=== PATIENT | male | born 1950 | race Caucasian/White ===

== ENCOUNTER → 2021-12-07 14:56 | Outpatient (ROUT) | payer MEDICARE, SELFPAY ==
[2021-12-07 15:16] LABS: COVID19 -Nasal RAPID Negative (Negative)
== END ==
PROVIDERS: Visit Provider Physician Assistant
DX: Z20.822 Contact with and (suspected) exposure to COVID-19 (principal)
CPT/HCPCS: 87635

== ENCOUNTER → 2022-02-24 13:54 | Outpatient (CLI) | payer MEDICARE, OTHER, SELFPAY ==
[2022-02-24 15:13] LABS: COVID19 -Nasal RAPID Negative (Negative)
--- NOTE | 2022-02-24 19:41 | DI.NM.S_ITS ---
DATE OF SERVICE: 02/24/2022 PROCEDURE PERFORMED: Exercise stress test. INDICATION: Preop evaluation, underlying left anterior fascicular block. CARDIAC STRESS: The patient underwent exercise stress test under the supervision of an attending staff. He walked on Max protocol for 9 minutes and 01 seconds, achieved maximum heart rate of 160, which was 108 percent of target heart rate. Resting blood pressure 122/80 mmHg. Peak blood pressure 162/90 mmHg. MADINA -33 percent and achieved 10.1 METs of workload. Baseline rhythm was sinus. The left anterior fascicular block. During stress, there were no convincing is inducible ischemic changes. In recovery, the patient has occasional PVCs and ventricular couplets without any ventricular tachycardia. No chest discomfort. Had some shortness of breath. CONCLUSION: Exercise stress test is negative for conclusive inducible ischemia. Excellent exercise tolerance. Functional aerobic impairment -33 percent. Achieved 10.1 metabolic equivalents of workload. Baseline rhythm sinus with left anterior fascicular block. In recovery, patient has some isolated premature ventricular contractions and ventricular couplets without any ventricular tachycardia. No anginal symptoms. Overall low-risk exercise stress test. Casey Wood - JOANNE/alhaji/keven doc#: [id number]/job#: [id number] dd: 02/24/2022 16:52:00 dt: 02/24/2022 19:29:00 DICTATING /COPIES TO: Sanjeev Chandler MD COPIES MNE: DERIK;
== END ==
PROVIDERS: PCP Student in an Organized Health Care Education/Training Program; Referring Provider Student in an Organized Health Care Education/Training Program; Visit Provider Student in an Organized Health Care Education/Training Program
DX: I25.2 Old myocardial infarction (principal); Z01.818 Encounter for other preprocedural examination; I44.4 Left anterior fascicular block; Z20.822 Contact with and (suspected) exposure to COVID-19
CPT/HCPCS: 87635; 93017

== ENCOUNTER 2022-06-02 10:30 | Outpatient (RCR) | payer MEDICARE, OTHER, SELFPAY ==
--- NOTE | 2022-02-25 22:27 | PT.OIE ---
Current Diagnoses Dizziness and giddiness (02/25/22) Visit Care Team Role Provider Type Jose F Gavin MD Primary Care Provider Physician Specialty: Family Practice Address: [address], [facility], [place], [address] Email: [email or web address] Simone Reeves MD Attending Provider Non-Staff Referring Provider Specialty: Neurology Address: [address] [place], [address] Email: Physical Therapy Initial Evaluation PT-OP-A Visit Information Start: 02/25/22 12:59 Freq: Status: Active Protocol: Document 02/25/22 13:01 AMB (Rec: 02/25/22 13:21 AMB [id number]) Out-Patient Physical Therapy Visit Information Visit Information Visit Type Initial Evaluation Visit Start Time 13:00 Visit Stop Time 13:45 Total Visit Minutes 45 Visit Number 1 PT-OP-B Current Condition Start: 02/25/22 12:59 Freq: Status: Active Protocol: Document 02/25/22 13:01 AMB (Rec: 02/25/22 13:21 AMB [id number]) Current Condition History of Current Condition Onset Date 3 years ago Current Complaints vestibular migraine History of Current Condition Pt feels Swimmy walking around and hits the doorjam, walking and looking is challenging all the time all of that started 3 years ago and is all the time. 2 ocular migraines-- (started in 1994) in the last 2 weeks, so migraines really started first , then balance issues started signficantly later. Has had prior physical therapy. Eye surgeries: cataracts, lasik. 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 Treatment Goals Patient/Caregiver Goals Reduced dizziness/ feeling off balance/ swimmy Prior Functional Status Baseline Function- ADL's Independent Baseline Function- Mobility Independent PT-OP-C Subjective Start: 02/25/22 12:59 Freq: Status: Active Protocol: Document 02/25/22 13:00 AMB (Rec: 02/26/22 15:49 AMB [id number]) Patient Questionnaires Dizziness Handicap Inventory DHI Score 18 DHI Functional Impairment 1 to 19% Impaired (Score 1-19) PT-OP-O Vestibular Start: 02/25/22 12:59 Freq: Status: Active Protocol: Document 02/25/22 13:00 AMB (Rec: 02/26/22 15:49 AMB [id number]) Vestibular Assessment Visual Testing Smooth Pursuits Horizontal WFL Smooth Pursuits Vertical WFL Saccades Horizontal WFL Saccades Vertical WFL Thrust Head Positive Left DVA (Line Degradation) 1 Vestibular Function Tests Fukuda Test 45 degree turn L mCTSIB Position 1 30 mCTSIB Position 2 30 mCTSIB Position 3 ankle sway mCTSIB Position 4 ankle sway Comments Vestibular Comments DGI: 21/24 significant veering with horizontal head turns, uses railing on stairs PT-OP-Q Treatments Start: 02/25/22 12:59 Freq: Status: Active Protocol: Document 02/25/22 13:00 AMB (Rec: 02/26/22 15:52 AMB [id number]) Neuro Re-Education Treatment Balance Activities 1 Details NBOS/modified tandem Comments HT PT-OP-T Assessment and Plan Start: 02/25/22 12:59 Freq: Status: Active Protocol: Document 02/26/22 22:16 AMB (Rec: 02/26/22 22:27 AMB [id number]) Physical Therapy Assessment Rehab Potential Rehabilitation Potential Good Evaluation Complexity Number of Personal Factors/Comorbidities 0 Number of Body Systems Impaired 1-2 Clinical Presentation at Evaluation Stable Impairments Impairments Balance,Vestibular Goals Three Impairment Gait Senior Care Goal (LTG) 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 LTG Duration 10 weeks Two Impairment HEP Short Term Goal (STG) Casey will be independent and consistent with a HEP for his dizziness. STG Duration 4 weeks One Impairment DGI Short Term Goal (STG) Casey will improve his DGI to 23/24. STG Duration 4 weeks Assessment Summary Assessment Casey attends physical therapy with a long history of migraine and a more recent history of a feeling of being off balance that is fairly consistent. Worst with horizontal head turns. He did have a positive head thrust test, but his DVA was actually quite good at only one line lost with head turns. DGI was most impacted with walking with head turns which did cause significant veering. 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 Casey will benefit from physical therapy to improve his overall balance and vestibular function. Physical Therapy Plan Frequency and Duration Frequency of Treatment 1x/Week Duration of Treatment 10 weeks Plan of Care Start Date 02/25/22 Plan of Care End Date 05/06/22 Therapeutic Interventions Therapeutic Interventions Balance Training,Neuromuscular Re-education,Self-Care/Home Management,Therapeutic Activities,Therapeutic Exercises,Vestibular Rehabilitation Next Visit Focus/Plan Next Note Type Treatment Note Next Visit Plan Progress HEP, focus on horizontal head turns
--- NOTE | 2022-02-25 22:29 | PT.OPPOC ---
Physical, Occupational & Speech Therapy At Current Diagnoses Dizziness and giddiness (02/25/22) Visit Care Team Role Provider Type Jose F Gavin MD Primary Care Provider Physician Specialty: Family Practice Address: [address] [place] [address], [facility] [place], [address] Email: [email or web address] Simone Reeves MD Attending Provider Non-Staff Referring Provider Specialty: Neurology Address: [address] [place], [address] Email: Plan Of Care PT-OP-T Assessment and Plan Start: 02/25/22 12:59 Freq: Status: Active Protocol: Document 02/26/22 22:16 AMB (Rec: 02/26/22 22:27 AMB [id number]) Physical Therapy Assessment Rehab Potential Rehabilitation Potential Good Evaluation Complexity Number of Personal Factors/Comorbidities 0 Number of Body Systems Impaired 1-2 Clinical Presentation at Evaluation Stable Impairments Impairments Balance,Vestibular Goals Three Impairment Gait Veterans Rehabilitation Counselor Goal (LTG) 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 LTG Duration 10 weeks Two Impairment HEP Short Term Goal (STG) Casey will be independent and consistent with a HEP for his dizziness. STG Duration 4 weeks One Impairment DGI Short Term Goal (STG) Casey will improve his DGI to 23/24. STG Duration 4 weeks Assessment Summary Assessment Casey attends physical therapy with a long history of migraine and a more recent history of a feeling of being off balance that is fairly consistent. Worst with horizontal head turns. He did have a positivite head thrust test, but his DVA was actually quite good at onely one line lost with head turns. DGI was most impacted with walking with head turns which did cause significant veering. 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 Casey will benefit from physical therapy to improve his overall balance and vestibular function. Physical Therapy Plan Frequency and Duration Frequency of Treatment 1x/Week Duration of Treatment 10 weeks Plan of Care Start Date 02/25/22 Plan of Care End Date 11/10/22 Therapeutic Interventions Therapeutic Interventions Balance Training,Neuromuscular Re-education,Self-Care/Home Management,Therapeutic Activities,Therapeutic Exercises,Vestibular Rehabilitation Next Visit Focus/Plan Next Note Type Treatment Note Next Visit Plan Progress HEP, focus on horizontal head turns Plan of Care Dates Plan of Care Start Date 02/25/22 Plan of Care End Date 05/06/22 Electronically Signed by: Namrata Vásquez, PT 02/26/22 [id number] If you are in agreement with this Plan of Care, please return a signed and dated copy. I have reviewed this Plan of Care and certify that the skilled therapy services above are required to meet the patient?s needs. Physician Signature Date Printed Name and Credentials Clinical Instructor Signature Printed Name and Credentials
--- NOTE | 2022-03-05 11:55 | PT.OTN ---
Current Diagnoses Dizziness and giddiness (03/04/22) Physical Therapy Treatment Note PT-OP-A Visit Information Start: 02/25/22 12:59 Freq: Status: Active Protocol: Document 03/04/22 13:28 AMB (Rec: 03/04/22 13:47 AMB [id number]) Out-Patient Physical Therapy Visit Information Visit Information Visit Type Treatment Note Visit Start Time 13:00 Visit Stop Time 13:45 Total Visit Minutes 45 Visit Number 2 PT-OP-B Current Condition Start: 02/25/22 12:59 Freq: Status: Active Protocol: Document 02/25/22 13:01 AMB (Rec: 02/25/22 13:21 AMB [id number]) Current Condition History of Current Condition Onset Date 3 years ago Current Complaints vestibular migraine History of Current Condition Pt feels Swimmy walking around and hits the doorjam, walking and looking is challenging all the time all of that started 3 years ago and is all the time. 2 ocular migraines-- (started in 1994) in the last 2 weeks, so migraines really started first , then balance issues started signficantly later. Has had prior physical therapy. Eye surgeries: cataracts, lasik. 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 Treatment Goals Patient/Caregiver Goals Reduced dizziness/ feeling off balance/ swimmy Prior Functional Status Baseline Function- ADL's Independent Baseline Function- Mobility Independent PT-OP-C Subjective Start: 02/25/22 12:59 Freq: Status: Active Protocol: Document 03/04/22 13:28 AMB (Rec: 03/04/22 13:47 AMB [id number]) OP-PT Subjective Patient Comments Patient Reported Progress Same PT-OP-O Vestibular Start: 02/25/22 12:59 Freq: Status: Active Protocol: Document 02/25/22 13:00 AMB (Rec: 02/26/22 15:49 AMB [id number]) Vestibular Assessment Visual Testing Smooth Pursuits Horizontal WFL Smooth Pursuits Vertical WFL Saccades Horizontal WFL Saccades Vertical WFL Thrust Head Positive Left DVA (Line Degradation) 1 Vestibular Function Tests Fukuda Test 45 degree turn L mCTSIB Position 1 30 mCTSIB Position 2 30 mCTSIB Position 3 ankle sway mCTSIB Position 4 ankle sway Comments Vestibular Comments DGI: significant veering with horizontal head turns, uses railing on stairs PT-OP-Q Treatments Start: 02/25/22 12:59 Freq: Status: Active Protocol: Document 03/04/22 11:42 AMB (Rec: 03/05/22 11:54 AMB [id number]) Neuro Re-Education Treatment Balance Activities foam Comments EO HT--good 1 Details NBOS/modified tandem Comments HT Other Activities 3 step and HT Reps/Duration 10 3 step and bow Reps/Duration 10 walking with head turns Details horizontal Comments mild veering, reaching out for wall ~5x PT-OP-T Assessment and Plan Start: 02/25/22 12:59 Freq: Status: Active Protocol: Document 03/04/22 11:42 AMB (Rec: 03/05/22 11:54 AMB [id number]) Physical Therapy Assessment Goals Three Impairment Gait Skilled Nursing Goal (LTG) 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 LTG Duration 10 weeks Two Impairment HEP Short Term Goal (STG) Casey will be independent and consistent with a HEP for his dizziness. STG Duration 4 weeks One Impairment DGI Short Term Goal (STG) Casey will improve his DGI to 23/24. STG Duration 4 weeks Assessment Summary Assessment Casey was challenged by 3- step and bow activities. [place] and HT resulted in multiple LOB (pt able to independently recover). Given 3 step and bow and 3 step and HT as HEP.
--- NOTE | 2022-04-07 12:42 | PT.OTN ---
Current Diagnoses Dizziness and giddiness (04/07/22) Physical Therapy Treatment Note PT-OP-A Visit Information Start: 02/25/22 12:59 Freq: Status: Active Protocol: Document 04/07/22 10:33 AMB (Rec: 04/07/22 10:56 AMB [id number]) Out-Patient Physical Therapy Visit Information Visit Information Visit Type Treatment Note Visit Start Time 10:30 Visit Stop Time 11:00 Total Visit Minutes 30 Visit Number 3 PT-OP-B Current Condition Start: 02/25/22 12:59 Freq: Status: Active Protocol: Document 02/25/22 13:01 AMB (Rec: 02/25/22 13:21 AMB [id number]) Current Condition History of Current Condition Onset Date 3 years ago Current Complaints vestibular migraine History of Current Condition Pt feels Swimmy walking around and hits the doorjam, walking and looking is challenging all the time all of that started 3 years ago and is all the time. 2 ocular migraines-- (started in 1994) in the last 2 weeks, so migraines really started first , then balance issues started signficantly later. Has had prior physical therapy. Eye surgeries: cataracts, lasik. 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 Treatment Goals Patient/Caregiver Goals Reduced dizziness/ feeling off balance/ swimmy Prior Functional Status Baseline Function- ADL's Independent Baseline Function- Mobility Independent PT-OP-C Subjective Start: 02/25/22 12:59 Freq: Status: Active Protocol: Document 04/07/22 10:33 AMB (Rec: 04/07/22 10:56 AMB [id number]) OP-PT Subjective Patient Comments Patient Comments In the mornings feels the most swimmy. Hours later until the swimmy subsides. PT-OP-O Vestibular Start: 02/25/22 12:59 Freq: Status: Active Protocol: Document 02/25/22 13:00 AMB (Rec: 02/26/22 15:49 AMB [id number]) Vestibular Assessment Visual Testing Smooth Pursuits Horizontal WFL Smooth Pursuits Vertical WFL Saccades Horizontal WFL Saccades Vertical WFL Thrust Head Positive Left DVA (Line Degradation) 1 Vestibular Function Tests Fukuda Test 45 degree turn L mCTSIB Position 1 30 mCTSIB Position 2 30 mCTSIB Position 3 ankle sway mCTSIB Position 4 ankle sway Comments Vestibular Comments DGI: significant veering with horizontal head turns, uses railing on stairs PT-OP-Q Treatments Start: 02/25/22 12:59 Freq: Status: Active Protocol: Document 04/07/22 10:33 AMB (Rec: 04/07/22 10:56 AMB [id number]) Neuro Re-Education Treatment Balance Activities foam Comments EO HT--good 1 Details NBOS/modified tandem Comments HT Other Activities 3 step and HT Reps/Duration 10 3 step and bow Reps/Duration 10 walking with head turns Details horizontal/ added vertical Comments mild veering, reaching out for wall ~5x PT-OP-T Assessment and Plan Start: 02/25/22 12:59 Freq: Status: Active Protocol: Document 04/07/22 10:33 AMB (Rec: 04/07/22 10:56 AMB [id number]) Physical Therapy Assessment Assessment Summary Assessment Pt chalenged by vertical head turns today, more so with gait than static balance. Physical Therapy Plan Next Visit Focus/Plan Next Note Type Treatment Note Next Visit Plan Progress HEP, focus on horizontal head turns
--- NOTE | 2022-04-19 14:30 | PT.OTN ---
Current Diagnoses Dizziness and giddiness (04/19/22) Physical Therapy Treatment Note PT-OP-A Visit Information Start: 02/25/22 12:59 Freq: Status: Active Protocol: Document 04/19/22 12:59 AMB (Rec: 04/19/22 13:45 AMB [id number]) Out-Patient Physical Therapy Visit Information Visit Information Visit Type Treatment Note Visit Start Time 13:00 Visit Stop Time 13:45 Total Visit Minutes 45 Visit Number 4 PT-OP-B Current Condition Start: 02/25/22 12:59 Freq: Status: Active Protocol: Document 02/25/22 13:01 AMB (Rec: 02/25/22 13:21 AMB [id number]) Current Condition History of Current Condition Onset Date 3 years ago Current Complaints vestibular migraine History of Current Condition Pt feels Swimmy walking around and hits the doorjam, walking and looking is challenging all the time all of that started 3 years ago and is all the time. 2 ocular migraines-- (started in 1994) in the last 2 weeks, so migraines really started first , then balance issues started signficantly later. Has had prior physical therapy. Eye surgeries: cataracts, lasik. 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 Treatment Goals Patient/Caregiver Goals Reduced dizziness/ feeling off balance/ swimmy Prior Functional Status Baseline Function- ADL's Independent Baseline Function- Mobility Independent PT-OP-C Subjective Start: 02/25/22 12:59 Freq: Status: Active Protocol: Document 04/19/22 12:59 AMB (Rec: 04/19/22 13:45 AMB [id number]) OP-PT Subjective Patient Comments Patient Comments Feeling extra floating lately. Goes out in the kayak with the camera and that can be challenging. PT-OP-O Vestibular Start: 02/25/22 12:59 Freq: Status: Active Protocol: Document 02/25/22 13:00 AMB (Rec: 02/26/22 15:49 AMB [id number]) Vestibular Assessment Visual Testing Smooth Pursuits Horizontal WFL Smooth Pursuits Vertical WFL Saccades Horizontal WFL Saccades Vertical WFL Thrust Head Positive Left DVA (Line Degradation) 1 Vestibular Function Tests Fukuda Test 45 degree turn L mCTSIB Position 1 30 mCTSIB Position 2 30 mCTSIB Position 3 ankle sway mCTSIB Position 4 ankle sway Comments Vestibular Comments DGI: 21/24 significant veering with horizontal head turns, uses railing on stairs PT-OP-Q Treatments Start: 02/25/22 12:59 Freq: Status: Active Protocol: Document 04/19/22 13:00 AMB (Rec: 04/20/22 13:30 AMB [id number]) Neuro Re-Education Treatment Balance Activities foam Comments EO HT--good Vestibular Rehabilitation Corrective Saccades Speed medium Reps/Duration 30x2 Other Activities 3 step and HT Reps/Duration 10 3 step and bow Reps/Duration 10 walking with head turns Details horizontal/ added vertical PT-OP-T Assessment and Plan Start: 02/25/22 12:59 Freq: Status: Active Protocol: Document 04/19/22 12:59 AMB (Rec: 04/19/22 13:45 AMB [id number]) Physical Therapy Assessment Goals Three Impairment Gait Statement Services Representative Goal (LTG) 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 LTG Duration 10 weeks Two Impairment HEP Short Term Goal (STG) Casey will be independent and consistent with a HEP for his dizziness. STG Duration 4 weeks One Impairment DGI Short Term Goal (STG) Casey will improve his DGI to 23/24. STG Duration 4 weeks Assessment Summary Assessment Pt is noticing continued floaty feelings. Discussed things that can promote migraines, pt does think doing photography from the kayak is a very visually challenging activity, as long as issues wiht his reader glasses might be causing more eye strain. Asked pt to schedule a few more appointments although his travel schedule and therapy schedule may make this challenging. Physical Therapy Plan Frequency and Duration Frequency of Treatment 1x/Week Duration of treatment (weeks) 10 Plan of Care Start Date 02/25/22 Plan of Care End Date 05/06/22 Therapeutic Interventions Therapeutic Interventions Balance Training,Neuromuscular Re-education,Self-Care/Home Management,Therapeutic Activities,Therapeutic Exercises,Vestibular Rehabilitation Next Visit Focus/Plan Next Note Type Treatment Note
--- NOTE | 2022-05-05 21:50 | PT.OTN ---
Current Diagnoses Dizziness and giddiness (05/05/22) Physical Therapy Treatment Note PT-OP-A Visit Information Start: 02/25/22 12:59 Freq: Status: Active Protocol: Document 05/05/22 10:30 AMB (Rec: 05/05/22 11:05 AMB [id number]) Out-Patient Physical Therapy Visit Information Visit Information Visit Type Treatment Note Visit Start Time 10:30 Visit Stop Time 11:15 Total Visit Minutes 45 Visit Number 5 PT-OP-B Current Condition Start: 02/25/22 12:59 Freq: Status: Active Protocol: Document 02/25/22 13:01 AMB (Rec: 02/25/22 13:21 AMB [id number]) Current Condition History of Current Condition Onset Date 3 years ago Current Complaints vestibular migraine History of Current Condition Pt feels Swimmy walking around and hits the doorjam, walking and looking is challenging all the time all of that started 3 years ago and is all the time. 2 ocular migraines-- (started in 1994) in the last 2 weeks, so migraines really started first , then balance issues started signficantly later. Has had prior physical therapy. Eye surgeries: cataracts, lasik. 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 Treatment Goals Patient/Caregiver Goals Reduced dizziness/ feeling off balance/ swimmy Prior Functional Status Baseline Function- ADL's Independent Baseline Function- Mobility Independent PT-OP-C Subjective Start: 02/25/22 12:59 Freq: Status: Active Protocol: Document 04/19/22 12:59 AMB (Rec: 04/19/22 13:45 AMB [id number]) OP-PT Subjective Patient Comments Patient Comments Feeling extra floating lately. Goes out in the kayak with the camera and that can be challenging. PT-OP-O Vestibular Start: 02/25/22 12:59 Freq: Status: Active Protocol: Document 02/25/22 13:00 AMB (Rec: 02/26/22 15:49 AMB [id number]) Vestibular Assessment Visual Testing Smooth Pursuits Horizontal WFL Smooth Pursuits Vertical WFL Saccades Horizontal WFL Saccades Vertical WFL Thrust Head Positive Left DVA (Line Degradation) 1 Vestibular Function Tests Fukuda Test 45 degree turn L mCTSIB Position 1 30 mCTSIB Position 2 30 mCTSIB Position 3 ankle sway mCTSIB Position 4 ankle sway Comments Vestibular Comments DGI: 21/24 significant veering with horizontal head turns, uses railing on stairs PT-OP-Q Treatments Start: 02/25/22 12:59 Freq: Status: Active Protocol: Document 05/05/22 10:30 AMB (Rec: 05/06/22 21:49 AMB [id number]) Neuro Re-Education Treatment Other Activities 3 step and HT Reps/Duration 10 3 step and bow Reps/Duration 10 walking with head turns Details horizontal/ added vertical PT-OP-T Assessment and Plan Start: 02/25/22 12:59 Freq: Status: Active Protocol: Document 05/05/22 10:30 AMB (Rec: 05/06/22 21:48 AMB [id number]) Physical Therapy Assessment Goals Three Impairment Gait Service Desk Associate Goal (LTG) 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 LTG Duration 10 weeks Two Impairment HEP Short Term Goal (STG) Casey will be independent and consistent with a HEP for his dizziness. STG Duration 4 weeks One Impairment DGI Short Term Goal (STG) Casey will improve his DGI to 23/24. STG Duration MET Assessment Summary Assessment Casey has improve his DGI. He didnot show any outward signs of veering/imbalance, but did feel off and swimmy with horizontal and vertical head turns. Overall he feels his symptoms have improved siglightly with physical therapy but not significantly. He has had a hard time being consistent with his HEP due to his travel. Physical Therapy Plan Frequency and Duration Frequency of Treatment 1x/Week Duration of treatment (weeks) 10 Plan of Care Start Date 02/25/22 Plan of Care End Date 05/06/22 Therapeutic Interventions Therapeutic Interventions Balance Training,Neuromuscular Re-education,Self-Care/Home Management,Therapeutic Activities,Therapeutic Exercises,Vestibular Rehabilitation Next Visit Focus/Plan Next Note Type Treatment Note
--- NOTE | 2022-06-02 20:53 | PT.OTN ---
Current Diagnoses Dizziness and giddiness (06/02/22) Physical Therapy Treatment Note PT-OP-A Visit Information Start: 02/25/22 12:59 Freq: Status: Active Protocol: Document 06/02/22 10:32 AMB (Rec: 06/02/22 11:17 AMB [id number]) Out-Patient Physical Therapy Visit Information Visit Information Visit Type Treatment Note Visit Start Time 10:30 Visit Stop Time 11:15 Total Visit Minutes 45 Visit Number 6 PT-OP-B Current Condition Start: 02/25/22 12:59 Freq: Status: Active Protocol: Document 02/25/22 13:01 AMB (Rec: 02/25/22 13:21 AMB [id number]) Current Condition History of Current Condition Onset Date 3 years ago Current Complaints vestibular migraine History of Current Condition Pt feels Swimmy walking around and hits the doorjam, walking and looking is challenging all the time all of that started 3 years ago and is all the time. 2 ocular migraines-- (started in 1994) in the last 2 weeks, so migraines really started first , then balance issues started signficantly later. Has had prior physical therapy. Eye surgeries: cataracts, lasik. 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 Treatment Goals Patient/Caregiver Goals Reduced dizziness/ feeling off balance/ swimmy Prior Functional Status Baseline Function- ADL's Independent Baseline Function- Mobility Independent PT-OP-C Subjective Start: 02/25/22 12:59 Freq: Status: Active Protocol: Document 06/02/22 10:30 AMB (Rec: 06/05/22 20:47 AMB [id number]) OP-PT Subjective Patient Comments Patient Comments Pt states he feels minimally better, does think exercises are helping but continues to have symptoms. PT-OP-O Vestibular Start: 02/25/22 12:59 Freq: Status: Active Protocol: Document 02/25/22 13:00 AMB (Rec: 02/26/22 15:49 AMB [id number]) Vestibular Assessment Visual Testing Smooth Pursuits Horizontal WFL Smooth Pursuits Vertical WFL Saccades Horizontal WFL Saccades Vertical WFL Thrust Head Positive Left DVA (Line Degradation) 1 Vestibular Function Tests Fukuda Test 45 degree turn L mCTSIB Position 1 30 mCTSIB Position 2 30 mCTSIB Position 3 ankle sway mCTSIB Position 4 ankle sway Comments Vestibular Comments DGI: 21/24 significant veering with horizontal head turns, uses railing on stairs PT-OP-Q Treatments Start: 02/25/22 12:59 Freq: Status: Active Protocol: Document 06/02/22 10:30 AMB (Rec: 06/03/22 13:16 AMB [id number]) Neuro Re-Education Treatment Vestibular Rehabilitation VOR Retraining Details vertical and horizontal Background plain Distance From Target 5' Speed 150bpm Position standing Other Activities 3 step and HT Reps/Duration 10 3 step and bow Reps/Duration 10 walking with head turns Details horizontal, vertical, diagonal PT-OP-T Assessment and Plan Start: 02/25/22 12:59 Freq: Status: Active Protocol: Document 06/02/22 10:32 AMB (Rec: 06/02/22 11:17 AMB [id number]) Physical Therapy Assessment Goals Three Impairment Gait Share D[employer] Goal (LTG) 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 LTG Duration Progress made- intermittently met Two Impairment HEP Short Term Goal (STG) Casey will be independent and consistent with a HEP for his dizziness. STG Duration MET One Impairment DGI Short Term Goal (STG) Casey will improve his DGI to 23/24. STG Duration MET Assessment Summary Assessment Casey has mt 2/3 of goals, but subjectively feels that sx are about the same, mildly improving. Continues to have a feeling of being off with quick head turns and quick movements. Did not see as much veering during assessment today, but pt still feels subjectively off with head turns despite continued HEP. Physical Therapy Plan Frequency and Duration Frequency of Treatment 1x/Week Duration of treatment (weeks) 1 Plan of Care Start Date 05/26/22 Plan of Care End Date 06/02/22 Therapeutic Interventions Therapeutic Interventions Balance Training,Neuromuscular Re-education,Self-Care/Home Management,Therapeutic Activities,Therapeutic Exercises,Vestibular Rehabilitation Discharge Physical Therapy Discharge Reasons Plateau in Progress
--- NOTE | 2022-06-02 21:08 | PT.OPDS ---
Current Diagnoses Dizziness and giddiness (06/02/22) Visit Care Team Role Provider Type oJse F Gavin MD Primary Care Provider Physician Specialty: Family Practice Address: [address], [address], [place], [address] Email: [email or web address] Simone Reeves MD Attending Provider Non-Staff Referring Provider Specialty: Neurology Address: [facility] [address] [facility], [place], [address] Email: Visit Number Visit Number 6 Discharge Summary PT-OP-B Current Condition Start: 02/25/22 12:59 Freq: Status: Active Protocol: Document 02/25/22 13:01 AMB (Rec: 02/25/22 13:21 AMB [id number]) Current Condition History of Current Condition Onset Date 3 years ago Current Complaints vestibular migraine History of Current Condition Pt feels Swimmy walking around and hits the doorjam, walking and looking is challenging all the time all of that started 3 years ago and is all the time. 2 ocular migraines-- (started in 1994) in the last 2 weeks, so migraines really started first , then balance issues started signficantly later. Has had prior physical therapy. Eye surgeries: cataracts, lasik. 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 Treatment Goals Patient/Caregiver Goals Reduced dizziness/ feeling off balance/ swimmy Prior Functional Status Baseline Function- ADL's Independent Baseline Function- Mobility Independent PT-OP-C Subjective Start: 02/25/22 12:59 Freq: Status: Active Protocol: Document 06/02/22 10:30 AMB (Rec: 06/05/22 20:47 AMB [id number]) OP-PT Subjective Patient Comments Patient Comments Pt states he feels minimally better, does think exercises are helping but continues to have symptoms. PT-OP-O Vestibular Start: 02/25/22 12:59 Freq: Status: Active Protocol: Document 02/25/22 13:00 AMB (Rec: 02/26/22 15:49 AMB [id number]) Vestibular Assessment Visual Testing Smooth Pursuits Horizontal WFL Smooth Pursuits Vertical WFL Saccades Horizontal WFL Saccades Vertical WFL Thrust Head Positive Left DVA (Line Degradation) 1 Vestibular Function Tests Fukuda Test 45 degree turn L mCTSIB Position 1 30 mCTSIB Position 2 30 mCTSIB Position 3 ankle sway mCTSIB Position 4 ankle sway Comments Vestibular Comments DGI: 21/24 significant veering with horizontal head turns, uses railing on stairs PT-OP-T Assessment and Plan Start: 02/25/22 12:59 Freq: Status: Active Protocol: Document 06/02/22 10:32 AMB (Rec: 06/02/22 11:17 AMB [id number]) Physical Therapy Assessment Goals Three Impairment Gait Snf Goal (LTG) 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 LTG Duration Progress made- intermittently met Two Impairment HEP Short Term Goal (STG) Casey will be independent and consistent with a HEP for his dizziness. STG Duration MET One Impairment DGI Short Term Goal (STG) Casey will improve his DGI to 23/24. STG Duration MET Assessment Summary Assessment Casey has mt 2/3 of goals, but subjectively feels that sx are about the same, mildly improving. Continues to have a feeling of being off with quick head turns and quick movements. Did not see as much veering during assessment today, but pt still feels subjectively off with head turns despite continued HEP. Physical Therapy Plan Frequency and Duration Frequency of Treatment 1x/Week Duration of treatment (weeks) 1 Plan of Care Start Date 05/26/22 Plan of Care End Date 06/02/22 Therapeutic Interventions Therapeutic Interventions Balance Training,Neuromuscular Re-education,Self-Care/Home Management,Therapeutic Activities,Therapeutic Exercises,Vestibular Rehabilitation Discharge Physical Therapy Discharge Reasons Plateau in Progress
--- NOTE | 2022-06-02 21:08 | PT.OPPOC ---
Physical, Occupational & Speech Therapy At [facility] Current Diagnoses Dizziness and giddiness (06/02/22) Visit Care Team Role Provider Type Jose F Gavin MD Primary Care Provider Physician Specialty: Family Practice Address: 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 LTG Duration Progress made- intermittently met Two Impairment HEP Short Term Goal (STG) Casey will be independent and consistent with a HEP for his dizziness. STG Duration MET One Impairment DGI Short Term Goal (STG) Casey will improve his DGI to 23/24. STG Duration MET Assessment Summary Assessment Casey has mt 2/3 of goals, but subjectively feels that sx are about the same, mildly improving. Continues to have a feeling of being off with quick head turns and quick movements. Did not see as much veering during assessment today, but pt still feels subjectively off with head turns despite continued HEP. Physical Therapy Plan Frequency and Duration Frequency of Treatment 1x/Week Duration of treatment (weeks) 1 Plan of Care Start Date 05/26/22 Plan of Care End Date 06/02/22 Therapeutic Interventions Therapeutic Interventions Balance Training,Neuromuscular Re-education,Self-Care/Home Management,Therapeutic Activities,Therapeutic Exercises,Vestibular Rehabilitation Discharge Physical Therapy Discharge Reasons Plateau in Progress Plan of Care Dates Plan of Care Start Date 05/26/22 Plan of Care End Date 06/02/22 Electronically Signed by: Namrata Vásquez, PT 06/05/22 [id number] If you are in agreement with this Plan of Care, please return a signed and dated copy. I have reviewed this Plan of Care and certify that the skilled therapy services above are required to meet the patient?s needs. Physician Signature Date Printed Name and Credentials Clinical Instructor Signature Printed Name and Credentials
== END 2022-06-09 08:45 | disposition home or self-care (01) ==
LOC: PHYS 10:30
PROVIDERS: PCP Family Medicine; Referring Provider Psychiatry & Neurology Neurology; Visit Provider Psychiatry & Neurology Neurology
DX: R42 Dizziness and giddiness (principal)
CPT/HCPCS: 97112; 97161